=== PATIENT | male | born 1935 | race African-American/Black ===

== ENCOUNTER 2018-03-27 21:16 | Observation (INO) | payer MEDICARE, OTHER ==
--- NOTE | 2018-03-27 21:36 | CT ---
CT BRAIN 03/27/18 HISTORY: Stroke-like symptoms. Noncontrast enhanced CT images of the brain is obtained. Images demonstrate a right parietal area of old stroke. No evidence of intracranial hemorrhages, mass es or lesions seen. IMPRESSION: Areas or right parietal encephalomalacia from old stroke. No acute intracranial abnormality seen. Findings called to Dr. Ryder at 9:24 p.m. on 03/27/18. Code CR POS: BRENNON
[2018-03-27 22:00] LABS: #Lymphocytes 0.7 thou/uL (1.20-3.40); #Monocytes 0.3 thou/uL (0.11-0.59); #Neutrophils 2.3 thou/uL (1.40-6.50); %Basophils 0.5 % (0.0-1.0); %Eosinophils 1.3 % (0.0-10.0); %Lymphocytes 20.5 % (21.0-51.0); %Monocytes 9.7 % (0.0-10.0); %Neutrophils 67.9 % (42.0-75.0); Hemoglobin 12.5 g/dL (14.0-18.0); Mean Corpuscular HGB CONC 33.3 g/dL (32.0-36.0); Mean Corpuscular Hemoglobin 31.3 pg (27.0-31.0); Mean Corpuscular Volume 94.1 fl (80.0-94.0); Mean Platelet Volume 7.5 fL (7.4-10.4); Platelet Count 119 thou/uL (130-400); RBC Distribution Width 12.9 % (11.5-14.5); Red Blood Cell (RBC) Count 3.99 mill/uL (4.70-6.10); White Blood Cell (WBC) Count 3.4 thou/uL (4.8-10.8)
[2018-03-27] MEDS ORDERED: Aspirin 300 MG Suppository ONE (22:02)
[2018-03-27 22:07] LABS: INR-International Normal Ratio 1.1; PTT 31.9 SEC (22.9-36.1); Prothrombin Time 14.7 SEC (12.0-14.7)
[2018-03-27 22:30] LABS: ALT (SGPT) 15 U/L (8-55); AST (SGOT) 28 U/L (5-34); Albumin 4.1 g/dL (3.4-4.8); Alkaline Phosphatase 107 U/L (40-150); Anion Gap 13 mmol/L (10-20); BUN (Urea Nitrogen) 19 mg/dL (8.4-25.7); Bilirubin, Total 0.2 mg/dL (0.2-1.2); Calc. Creatinine Clearance 0 mL/min (70-130); Calcium 9.2 mg/dL (7.8-10.44); Carbon Dioxide 24 mmol/L (23-31); Chloride 107 mmol/L (98-107); Estimated GFR-MDRD 64; Glucose 92 mg/dL (83-110); Potassium 4.4 mmol/L (3.5-5.1); Protein, Total 7.1 g/dL (5.8-8.1); Sodium 140 mmol/L (136-145)
[2018-03-27 22:33] LABS: CKMB 3.6 ng/mL (0-6.6); Troponin I Less than 0.010 ng/mL (< 0.028)
[2018-03-27] MEDS ORDERED: Labetalol HCl 100 MG/20 ML VIAL SLOW IVP PRN (23:27)
[2018-03-27] MEDS ORDERED: hydrALAZINE 20 MG/ML VIAL SLOW IVP PRN (23:27)
[2018-03-27] MEDS ORDERED: Mag-Al 1200 mg/1200 mg/30 ML UDCUP PO PRN (23:27)
[2018-03-27] MEDS ORDERED: Zolpidem Tartrate 5 MG TAB PO PRN (23:27)
[2018-03-27] MEDS ORDERED: Ondansetron ODT 4 MG TAB PO PRN (23:27)
[2018-03-27] MEDS ORDERED: Acetaminophen 325 MG TAB PO PRN (23:27)
[2018-03-27] MEDS ORDERED: Loperamide HCl 2 MG CAP PO PRN (23:27)
[2018-03-27] MEDS ORDERED: Senokot 8.6 MG TAB PO PRN (23:27)
[2018-03-27] MEDS ORDERED: Ondansetron HCl/PF 4 MG/2 ML Vial IVP PRN (23:27)
[2018-03-27] MEDS ORDERED: Milk Of Magnesia 30 ML UDCUP PO PRN (23:27)
[2018-03-27] MEDS ORDERED: HYDROcodone/Acetaminophen 5/325 mg Tablet PO PRN (23:27)
--- NOTE | 2018-03-28 00:46 | HP ---
PRIMARY CARE PHYSICIAN: Dr. Saritha Dao. REASON FOR ADMISSION: Stroke-like symptoms. HISTORY OF PRESENT ILLNESS: An 83-year-old -[place] male who has history of hypertension, hi story of hemorrhagic CVA, dyslipidemia as well as congestive heart failure and seizure disorder, who was fine when he went to [facility] in evening time. He was talking and making jokes there, but his neph ew was with him, he noticed that the patient was doing involuntary movement of his right hand. He wa s having shaking movement of right hand and he was appeared less coherent. He was also found with suraj srivastava when he was seated in chair and watching performance on the stage. The patient was not re sponding properly and that is why his nephew thought that something wrong with him. He called parame dics and subsequently paramedics came to see him there, at that time his blood pressure was 205/120 a nd manual blood pressure was 180/104. The patient was also appeared confused and that is why he was sent to our emergency room. There was stroke alert was initiated from ambulance, but when he came to the ER, he was back to normal. This patient has history of intracranial hemorrhage about 2 months ago and at that time he was admitt ed to [facility]. He was on blood thinner medicine before, but that was taken of f and after resolution of intracranial hemorrhage, the patient was started taking aspirin 81 mg daily . When I saw this patient in the emergency room, at that time, the patient's daughter was present and roberto víctor reported to me that he is back to his baseline in his normal level. REVIEW OF SYSTEMS: The following complete review of systems was negative, unless otherwise mentioned in the HPI or below: Constitutional: Weight loss or gain, ability to conduct usual activities. Sk in: Rash, itching. Eyes: Double vision, pain. ENT/Mouth: Nose bleeding, neck stiffness, pain, te nderness. Cardiovascular: Palpitations, dyspnea on exertion, orthopnea. Respiratory: Shortness of breath, wheezing, cough, hemoptysis, fever or night sweats. Gastrointestinal: Poor appetite, abdom inal pain, heartburn, nausea, vomiting, constipation, or diarrhea. Genitourinary: Urgency, frequenc y, dysuria, nocturia. Musculoskeletal: Pain, swelling. Neurologic/Psychiatric: Anxiety, depressio n. Allergy/Immunologic: Skin rash, bleeding tendency. Please see my HPI for pertinent positive and negative. All other review of system reviewed and negative except as mentioned in the HPI. PAST MEDICAL HISTORY: History of unspecified type of arrhythmia; history of AICD; history of congest barbara heart failure, type of congestive heart failure not known; hypertension; dyslipidemia; gout; oste oarthritis; history of hemorrhagic cerebrovascular accident; history of ischemic cerebrovascular acci dent in 2000, seizure disorder. PAST SURGICAL HISTORY: Left hip surgery, AICD placement. PAST PSYCHIATRIC HISTORY: Reviewed and negative. SOCIAL HISTORY: The patient lives at home with his daughter. No history of tobacco, alcohol or illi cit drug abuse. He ambulates with a cane. FAMILY HISTORY: No strong family history of premature coronary artery disease, stroke or cancer. ALLERGIES: No known drug allergy. CURRENT HOME MEDICATIONS: Minoxidil 5 mg p.o. daily, clonidine 0.1 mg twice daily, carbamazepine 200 mg twice daily, Ecotrin 81 mg p.o. daily, Aldactone 25 mg p.o. daily. The patient's family member did not bring home medication and that is why exactly not verified, but t his is based on the patient's daughter's memory. EMERGENCY ROOM COURSE: The patient is given aspirin 243 mg rectally. PHYSICAL EXAMINATION: VITAL SIGNS: Blood pressure initially 167/80, pulse 60, respiratory rate 15, temperature 97.8, satur ation 91% on room air, weight 89.3 kilograms. GENERAL: The patient is currently alert, awake, in no obvious acute distress. HEAD: Normocephalic, atraumatic. EYES: Pupils are round and reactive to light. Extraocular muscle intact. ENT: Oropharynx within normal limits. Moist mucous membranes. No oral lesion, no pharyngeal erythe ma, no exudate. NECK: Supple, no thyromegaly, no carotid bruit, no jugular venous distention. LUNGS: Clear to auscultation without any rhonchi or rales. CARDIAC: S1, S2 appears regular. No murmur, no gallop, no rub. ABDOMEN: Soft, bowel sounds present, nontender, nondistended. No organomegaly, no mass, no suprapub ic tenderness. BACK: Unremarkable, no CVA tenderness. EXTREMITIES: Upper extremity: Passive movement of all joints are normal. Lower extremities: No ed haylee. Good peripheral pulsation. SKIN: No skin rash. HEMATOLOGICAL SYSTEM: No lymphadenopathy. PSYCHIATRIC: Normal affect. NEUROLOGIC: Only abnormality I found is mild left-sided hemineglect, mild left-sided facial droop, b ut he follows all commands. His cranial nerve grossly intact. Motor and sensation within normal hubbard its and up to his baseline level. No cerebellar sign. Plantar bilateral flexor. SIGNIFICANT LABORATORY DATA: 1. EKG showing pacemaker rhythm, prolonged AV conduction, nonspecific T-wave changes. 2. CT brain based on my review, old stroke of parietal region. No current bleeding. No current act barbara stroke. 3. CBC: WBC 3.4, hemoglobin 12.5, platelet 119. 4. BMP: Sodium 140, potassium 4.4, chloride 107, carbon dioxide 24, anion gap 13, BUN 19, creatinin e 1.30, glucose 92, calcium 9.2. 5. LFT: AST 28, ALT 15, alkaline phosphatase 107, albumin 4.1, CK-MB 3.6, troponin I less than 0.01 0. INR 1.1. ASSESSMENT AND PLAN: IMPRESSION: 1. Stroke-like symptoms. This patient has history of ischemic stroke in 2000 and two months ago he had hemorrhagic stroke. The patient's symptoms completely improved to back to normal. I am suspecti ng this episode is related with a transient ischemic attack/new cerebrovascular accident. At this po int, the patient has a defibrillator/pacemaker and the patient cannot get MRI because of that, but we will obtain echocardiography, carotid Doppler ultrasound. We will consult Neurology for their opini on. We will keep aspirin 81 mg p.o. daily, Lipitor 20 mg p.o. daily. We will start Aldactone 25 mg p.o. daily, clonidine 0.1 mg p.o. b.i.d. and minoxidil 5 mg p.o. daily. We will verify the patient's home medication and start selected home medications. We will check lipid profile, homocysteine leve l tomorrow. Neuro check every 4 hourly. PT, OT, speech evaluation while in hospital. 2. History of congestive heart failure with a history of AICD. This patient is taking Aldactone, La six. He has AICD. Most likely he has underlying congestive heart failure. We will obtain echocardi ography to assess ejection fraction and other structural abnormality. We will continue the patient's home medication. 3. Hypertension. We will continue the patient's home medication including clonidine, minoxidil, [place], Aldactone as per home dosage. We will verify home medication and resumed medication [facility]. 4. Dyslipidemia. Check lipid profile tomorrow and start Lipitor 20 mg p.o. at bedtime. 5. Mild thrombocytopenia. We will repeat CBC tomorrow. 6. Neutropenia and anemia with macrocytosis with mild thrombocytopenia. We will check B12, folate l evel tomorrow and start folic acid and vitamin B12 therapy. 7. History of gout. We will continue allopurinol 100 mg p.o. daily. 8. Deep venous thrombosis prophylaxis, not needed because we are expecting discharge in 24 hours. 9. Gastrointestinal prophylaxis, Pepcid 20 mg p.o. b.i.d. 10. Code status: The patient is FULL CODE. The patient's daughter is surrogate decision maker. Disposition plan within 24 hours. We will keep him as observation status and do neuro check while in hospital.
[2018-03-28 01:08] VITALS: BMI 25.0
[2018-03-28 05:07] LABS: #Lymphocytes 0.8 thou/uL (1.20-3.40); #Monocytes 0.3 thou/uL (0.11-0.59); #Neutrophils 2.5 thou/uL (1.40-6.50); %Basophils 0.4 % (0.0-1.0); %Eosinophils 0.3 % (0.0-10.0); %Lymphocytes 22.5 % (21.0-51.0); %Monocytes 9.2 % (0.0-10.0); %Neutrophils 67.6 % (42.0-75.0); Mean Corpuscular HGB CONC 32.6 g/dL (32.0-36.0); Mean Corpuscular Hemoglobin 30.6 pg (27.0-31.0); Mean Corpuscular Volume 93.7 fl (80.0-94.0); Mean Platelet Volume 7.8 fL (7.4-10.4); Platelet Count 128 thou/uL (130-400); RBC Distribution Width 12.8 % (11.5-14.5); Red Blood Cell (RBC) Count 3.93 mill/uL (4.70-6.10); White Blood Cell (WBC) Count 3.7 thou/uL (4.8-10.8)
[2018-03-28 05:22] LABS: Anion Gap 9 mmol/L (10-20); BUN (Urea Nitrogen) 18 mg/dL (8.4-25.7); Calc. Creatinine Clearance 64 mL/min (70-130); Calcium 9.1 mg/dL (7.8-10.44); Carbon Dioxide 25 mmol/L (23-31); Cardiac Risk 2.6 (Less than 4.5); Chloride 107 mmol/L (98-107); Cholesterol 167 mg/dl (< 200 Desired); Estimated GFR-MDRD 76; Glucose 98 mg/dL (83-110); HDL Cholesterol 65 mg/dL (>60 Neg Risk); LDL Cholesterol, Calculated 93 mg/dL; Potassium 3.9 mmol/L (3.5-5.1); Sodium 137 mmol/L (136-145); Triglycerides 44 mg/dL (Less than 150)
[2018-03-28 05:51] LABS: Folate (Folic Acid) 7.3 ng/mL (7.0-31.4)
[2018-03-28] MEDS ORDERED: Spironolactone 25 MG TAB PO SCH (08:00)
[2018-03-28] MEDS ORDERED: Famotidine 20 MG TAB PO SCH (09:00)
[2018-03-28] MEDS ORDERED: Minoxidil 2.5 MG TAB PO SCH (09:00)
[2018-03-28] MEDS ORDERED: Aspirin 81 mg Enteric Coated Tablet PO SCH (09:00)
[2018-03-28] MEDS ORDERED: cloNIDine 0.1 MG TAB PO SCH (09:00)
[2018-03-28] MEDS ORDERED: Carvedilol 3.125 MG TAB PO SCH (09:00)
--- NOTE | 2018-03-28 10:31 | ULT ---
BILATERAL CAROTID DUPLEX ULTRASOUND: Date: 03/28/18 HISTORY: Stroke. CVA. FINDINGS: Real-time color Doppler evaluation of the right and left carotid systems shows some plaque formation at the origin of both internal carotid arteries. On the right side, peak systolic velocities of the common carotid were 123 cm/second. Internal caroti d velocities were 990 cm/second and external carotid velocities were 200 cm/second. On the left side, peak systolic velocities of the common carotid were 111 cm/second. Internal carotid velocities were 73 cm/second and external carotid velocities were 113 cm/second. Vertebral flow was antegrade bilaterally. IMPRESSION: 1. No evidence of hemodynamically significant stenosis of either internal carotid artery. 2. Incidental note is made of moderate stenosis of the right external carotid artery. POS: BRENNON
--- NOTE | 2018-03-28 14:07 | ADD-HP ---
ADDENDUM: 1. Hypertensive urgency, which was there at anglican level, but currently improved and will monitor cl osely and will resume selected medication for blood pressure. 2. Seizure disorder. We will continue Tegretol as per home dosage. 3. We will interrogate his pacemaker/defibrillator to rule out any arrhythmia.
[2018-03-28 15:41] VITALS: BP 130/61; TEMP 97.8
--- NOTE | 2018-03-28 17:19 | CON ---
DATE OF CONSULTATION: 03/28/2018 CHIEF COMPLAINT: Possible acute stroke. HISTORY OF PRESENT ILLNESS: The patient was unable to give me any medical history. He states he herrmann s not remember what happened to him yesterday and why he came in. Per chart, he has history of high blood pressure, hemorrhagic CVA, congestive heart failure, dyslipidemia, and seizure disorder, and he was having involuntary movement of his right hand and some confusion along with facial droop by a fa hari member and was not responding right and he was brought to the hospital. His blood pressure was 205/120, and after coming back to the ER, he is return back to his baseline. The patient does not re member any of this event and his brother, who was in the room, could not provide any additional infor mation. They do not say, the patient reports he does not have any clear memory problems. PAST MEDICAL HISTORY: Cardiac dysrhythmia, AICD, history of congestive heart failure, hypertension, hypercholesterolemia, gout, osteoarthritis, hemorrhagic CVA in 2000, seizure disorder. PAST SURGICAL HISTORY: Left hip surgery, AICD placement. SOCIAL HISTORY: He lives with his daughter. Does not drink or smoke. FAMILY HISTORY: Positive for hypertension and not for cancer. No history of stroke. ALLERGIES: No drug allergies. MEDICATIONS: Reviewed. He is on carbamazepine 200 mg b.i.d. for seizures and he is on aspirin for s troke prophylaxis. REVIEW OF SYSTEMS: PULMONARY: Normal. CARDIAC: Normal. GASTROINTESTINAL: Normal. GENITOURINARY: Normal. NEUROLOGICAL: Positive for episode of confusion and involuntary movements associated with hypertensi on. HEMATOLOGY: Normal. PULMONARY: Normal. DERMATOLOGY: Normal. CURRENT LABORATORY RESULTS: White count 3.7, hemoglobin 12, hematocrit 36.8, platelets 128. PT 14.7 , INR 1.1, PTT 31.9, sodium 137, potassium 3.9, chloride 107, bicarbonate 25, anion gap 9, BUN 18, cr eatinine 1.12, GFR 76, glucose 98, AST 28, ALT 15, alkaline phosphatase 107. Cholesterol and triglyc erides were within normal limits. B12 is 482. Folate 7.30. Homocysteine 14.61. CT scan of the hea d performed yesterday showed areas of right parietal encephalomalacia from prior stroke. No acute in tracranial abnormalities and carotid Doppler is negative for any significant stenosis. He has modera te stenosis of right external carotid artery. PHYSICAL EXAMINATION: VITAL SIGNS: Blood pressure 125/68, pulse 61, temperature 97.9, respiratory rate 16, and O2 sats 95. GENERAL APPEARANCE: Well-built, well-nourished gentleman, who is comfortable. CHEST: Clear vesicular breathing. CARDIOVASCULAR: S1, S2 heard, no murmurs. Carotids are clear. ABDOMEN: Soft, nontender, no organomegaly noted. NEUROLOGIC: Higher intellectual functions. He is oriented to person and place, knows the month is M ay, but missed the date and the year and brother states that was because I certainly asked him for in formation. Cranial nerves II-XII normal extraocular movements. Normal pupillary reaction. Normal f undus exam. No facial asymmetry, normal sensation of face bilaterally. Tongue midline, no atrophy n oted. Normal hearing bilaterally. MOTOR: Bulk normal, tone normal, strength 5/5 in upper and lower extremities bilaterally. Muscle gr oups tested were iliopsoas, hamstrings, quadriceps, ankle dorsiflexion and plantarflexion bilaterally . Deltoid, biceps, triceps, wrist extension and flexion bilaterally. SENSORY: Normal touch, temperature, proprioception and vibration bilaterally. CEREBELLAR: Normal [id number]. Gait not tested. IMPRESSION: Patient is an 83-year-old man with prior history of strokes, congestive heart failure an d AICD also has hypertension. He presented with unusual episode of having had some confusion and inv oluntary movements in the right upper extremity, which was all transient and subsided. His blood pre ssures were at fairly high initially and subsequently they trended down and they are now back to base line, at this time, most likely explanation is possible TIA versus hypertensive crises and he takes a spirin on a daily basis and his neurological examination is essentially normal except for some mild c ognitive problems, which I suspect have been present for a while. RECOMMENDATIONS: Increase aspirin to full dose 325 mg per day. I do not think any additional invest igations are needed at this time, he has pending echo, carotid Doppler was negative and we are unable to do MRI due to has been having a pacemaker. Please call Neurology if you have any further questio ns.
--- NOTE | 2018-03-28 18:55 | DIS ---
DATE OF ADMISSION: 03/27/2018 DATE OF DISCHARGE: 03/28/2018 PRIMARY CARE PHYSICIAN: Dr. Dao. DISCHARGE DIAGNOSES: 1. Transient ischemic attack. 2. Hypertensive encephalopathy. 3. History of cerebrovascular disease and prior stroke. 4. Seizure disorder. 5. Status post AICD/pacemaker placement in the past. 6. History of arrhythmia of unknown type. 7. History of chronic diastolic congestive heart failure. 8. Essential hypertension. 9. Hyperlipidemia. 10. Gout. 11. Osteoarthritis. 12. History of hemorrhagic cerebrovascular accident. CONSULTATION: Neurology, Dr. Lovell. PROCEDURES: 1. Echocardiogram on 03/28/2018 that showed an EF of 50-55%. Pacer lead in the RV, normal LA, moder ately enlarged RA, mild TR. 2. Carotid ultrasound that showed no hemodynamically significant stenoses of the internal carotid ar stefani and moderate stenosis of the right external carotid. HOSPITAL COURSE: Mr. Wilson is an 83-year-old gentleman with above history who was in the emergency department on 03/27/2018 via EMS after family found him not acting like his normal self. He was lisa jacky making jokes and his nephews with him, but was doing some involuntary movements of his right ferraro d and shaking movement in the right hand and appeared less coherent. He was seated in a chair and palmer d a little bit of a facial droop, so EMS was called. He was seen and evaluated. There, his blood pr essure 205/120, minimal blood pressure 180/104. He was transported to the emergency department for e valuation. Initial workup unremarkable. Given medicines to normal his blood pressure. We were called for admis ac. HOSPITAL COURSE: Patient is seen and examined by Dr. Mejia. He was continued on regular home medi cations, Neurology consultation was entered. Echo and carotid ultrasound were requested. Overnight, his symptoms completely resolved. Today, he is back to his baseline. Echo and carotid were unremar kable as above. He was seen by Neurology who recommended increased to full aspirin a day and otherwi se no further workup. He was subsequently stable for discharge with outpatient followup. PHYSICAL EXAMINATION: The patient was seen and examined on the day of discharge. Discharge plan and disposition discussed with the patient and his family face to face at the bedside. DISCHARGE MEDICATIONS: 1. Aspirin 325 mg daily, they just refilled his baby aspirin so at home they could take four baby as pirins a day until they were out. 2. Lipitor 20 mg p.o. at bedtime. 3. Zocor 20 mg p.o. at bedtime. 4. Minoxidil 2.5 mg p.o. daily. New prescription sent. 5. Spironolactone 25 mg p.o. q.a.m. New prescription sent. 6. Coreg 3.125 mg p.o. b.i.d. New prescription sent. FOLLOWUP APPOINTMENTS: 1. Dr. Dao within a week. 2. His neurologist next available. DISCHARGE ACTIVITY: Per cardiopulmonary limits. DISCHARGE DIET: Heart healthy recommended. DISCHARGE CONDITION: Stable. DISPOSITION: He can be discharged home via private vehicle.
[2018-03-28] MEDS ORDERED: Atorvastatin Calcium 20 MG TAB PO SCH (21:00)
== END 2018-03-28 17:10 | disposition home or self-care (01) ==
LOC: ERS 21:16 → 2SE 22:44
PROVIDERS: ADMIT Internal Medicine; ATTEND Internal Medicine
DX: G45.9 Transient cerebral ischemic attack, unspecified (principal); I11.0 Hypertensive heart disease with heart failure; I50.32 Chronic diastolic (congestive) heart failure; E78.5 Hyperlipidemia, unspecified; M10.9 Gout, unspecified; D69.6 Thrombocytopenia, unspecified; D70.9 Neutropenia, unspecified; D53.9 Nutritional anemia, unspecified; I16.0 Hypertensive urgency; G40.909 Epilepsy, unspecified, not intractable, without status epilepticus; M19.90 Unspecified osteoarthritis, unspecified site; I67.4 Hypertensive encephalopathy; Z86.73 Personal history of transient ischemic attack (TIA), and cerebral infarction without residual deficits; Z79.82 Long term (current) use of aspirin; Z79.899 Other long term (current) drug therapy; Z95.810 Presence of automatic (implantable) cardiac defibrillator
CPT/HCPCS: 70450; 80048; 80053; 80061; 82553; 82607; 82746; 82962 ×2; 83090; 84484; 85025 ×2; 85610; 85730; 93005; 93306; 93880; 94760; 97139 ×2; 97530; 99285; G0378; G8978; G8979; G8980; 36415; 36416; G8996-GN-CH; G8997-GN-CH

== ENCOUNTER 2021-10-18 07:43 | Outpatient (CLI) | payer MEDICARE | END 2021-10-18 07:44 | disposition home or self-care (01) | LOC: SCSMRI 07:43 → SCSRAD 07:44 | PROVIDERS: ATTEND Neurological Surgery | DX: M47.26 Other spondylosis with radiculopathy, lumbar region (principal) | CPT/HCPCS: 72110 ==

== ENCOUNTER 2021-10-24 16:49 | Inpatient (IN) | payer OTHER, MEDICARE ==
[2021-10-24] MEDS ORDERED: Ondansetron PF 4 MG/2 ML Vial IVP PRN (21:45)
[2021-10-24] MEDS ORDERED: Labetalol HCl 100 MG/20 ML VIAL SLOW IVP PRN (21:47)
[2021-10-24] MEDS: niCARdipine 25 MG in Sodium Chloride 0.9% 250 ML 240 ML IVPB SCH (23:00)
[2021-10-24] MEDS ORDERED: niCARdipine 25 MG in Sodium Chloride 0.9% 250 ML 250 ML IVPB SCH (23:15)
[2021-10-25] MEDS: niCARdipine 25 MG in Sodium Chloride 0.9% 250 ML 240 ML IVPB SCH ×4 (02:57→13:33)
[2021-10-25 03:39] LABS: #Lymphocytes 0.5 thou/uL (1.20-3.40); #Monocytes 0.6 thou/uL (0.11-0.59); #Neutrophils 3.2 thou/uL (1.40-6.50); %Basophils 0.2 % (0.0-1.0); %Eosinophils 0.7 % (0.0-10.0); %Lymphocytes 11.1 % (21.0-51.0); %Monocytes 13.6 % (0.0-10.0); %Neutrophils 74.4 % (42.0-75.0); Hemoglobin 11.3 g/dL (14.0-18.0); Mean Corpuscular HGB CONC 33.4 g/dL (32.0-36.0); Mean Corpuscular Hemoglobin 31.2 pg (27.0-31.0); Mean Corpuscular Volume 93.5 fL (78.0-98.0); Mean Platelet Volume 8.4 fL (7.4-10.4); Platelet Count 121 thou/uL (130-400); Red Blood Cell (RBC) Count 3.63 mill/uL (4.70-6.10); White Blood Cell (WBC) Count 4.3 thou/uL (4.8-10.8)
[2021-10-25 03:42] LABS: Anion Gap 14 mmol/L (10-20); BUN (Urea Nitrogen) 14 mg/dL (8.4-25.7); Calc. Creatinine Clearance 0 mL/min (70-130); Calcium 9.9 mg/dL (7.8-10.44); Carbon Dioxide 27 mmol/L (23-31); Chloride 103 mmol/L (98-107); Glucose 109 mg/dL (83-110); Potassium 3.5 mmol/L (3.5-5.1); Sodium 140 mmol/L (136-145)
[2021-10-25 06:10] VITALS: BMI 20.9
[2021-10-25] MEDS ORDERED: Famotidine 20 MG TAB PO SCH (09:00)
[2021-10-25] MEDS: Famotidine/PF 20 mg/2ml Vial SLOW IVP SCH ×2 (09:15→21:24)
[2021-10-25] MEDS ORDERED: Amlodipine 5 MG TAB PO SCH (12:30)
[2021-10-25] MEDS: Acetaminophen 325 MG TAB PO PRN (14:17)
[2021-10-25] MEDS: cloNIDine 0.1 MG TAB PO SCH (21:22)
[2021-10-25] MEDS: Rosuvastatin 10 MG TAB PO SCH (21:22)
[2021-10-25] MEDS: lamoTRIgine 100 MG TAB PO SCH (21:22)
[2021-10-25] MEDS: Cefuroxime Axetil 250 MG TAB PO SCH (21:24)
[2021-10-26] MEDS: hydrALAZINE 20 MG/ML VIAL SLOW IVP PRN ×6 (00:13→19:35)
[2021-10-26] MEDS: Acetaminophen 325 MG TAB PO PRN ×4 (03:24→20:20)
[2021-10-26 04:17] LABS: INR-International Normal Ratio 1.2
[2021-10-26 04:24] LABS: Hemoglobin 10.7 g/dL (14.0-18.0); Mean Corpuscular HGB CONC 32.9 g/dL (32.0-36.0); Mean Corpuscular Hemoglobin 30.9 pg (27.0-31.0); Mean Corpuscular Volume 93.7 fL (78.0-98.0); Mean Platelet Volume 8.3 fL (7.4-10.4); Platelet Count 123 thou/uL (130-400); RBC Distribution Width 14.1 % (11.5-14.5); Red Blood Cell (RBC) Count 3.47 mill/uL (4.70-6.10); White Blood Cell (WBC) Count 3.4 thou/uL (4.8-10.8)
[2021-10-26 04:29] LABS: Anion Gap 15 mmol/L (10-20); BUN (Urea Nitrogen) 15 mg/dL (8.4-25.7); Calc. Creatinine Clearance 48 mL/min (70-130); Calcium 9.1 mg/dL (7.8-10.44); Carbon Dioxide 21 mmol/L (23-31); Chloride 107 mmol/L (98-107); Glucose 97 mg/dL (83-110); Magnesium 2.1 mg/dL (1.6-2.6); Potassium 3.3 mmol/L (3.5-5.1); Sodium 140 mmol/L (136-145)
[2021-10-26 05:02] LABS: Band 3 % (5-11); Lymphocytes 26 % (21-51); MDiff Complete? YES; Monocytes 10 % (0-10); Neutrophil 61 % (42-75)
[2021-10-26 06:31] LABS: Phosphorus 2.4 mg/dL (2.3-4.7)
[2021-10-26] MEDS: Famotidine/PF 20 mg/2ml Vial SLOW IVP SCH ×2 (08:45→20:23)
[2021-10-26] MEDS: Lisinopril 20 MG TAB PO SCH (08:45)
[2021-10-26] MEDS: Allopurinol 300 MG TAB PO SCH (08:46)
[2021-10-26] MEDS: Furosemide 20 MG TAB PO SCH ×2 (08:46→14:56)
[2021-10-26] MEDS: cloNIDine 0.1 MG TAB PO SCH ×2 (08:46→20:22)
[2021-10-26] MEDS: lamoTRIgine 100 MG TAB PO SCH ×2 (08:46→20:23)
[2021-10-26] MEDS: Cefuroxime Axetil 250 MG TAB PO SCH ×2 (09:56→20:23)
[2021-10-26] MEDS ORDERED: Electrolyte Replacement Protocol 1 EACH FS SCH (18:15)
[2021-10-26] MEDS ORDERED: Potassium Chloride 20 MEQ TAB PO SCH (18:15)
[2021-10-26] MEDS: Rosuvastatin 10 MG TAB PO SCH (20:20)
[2021-10-27 06:09] LABS: Anion Gap 16 mmol/L (10-20); BUN (Urea Nitrogen) 18 mg/dL (8.4-25.7); Calc. Creatinine Clearance 39 mL/min (70-130); Calcium 9.1 mg/dL (7.8-10.44); Carbon Dioxide 20 mmol/L (23-31); Chloride 108 mmol/L (98-107); Glucose 81 mg/dL (83-110); Magnesium 2.2 mg/dL (1.6-2.6); Potassium 4.4 mmol/L (3.5-5.1); Sodium 140 mmol/L (136-145)
[2021-10-27] MEDS: Lisinopril 20 MG TAB PO SCH (08:13)
[2021-10-27] MEDS: cloNIDine 0.1 MG TAB PO SCH ×3 (08:17→20:21)
[2021-10-27] MEDS: Furosemide 20 MG TAB PO SCH ×2 (08:18→14:07)
[2021-10-27] MEDS: Cefuroxime Axetil 250 MG TAB PO SCH ×2 (08:19→20:21)
[2021-10-27] MEDS: lamoTRIgine 100 MG TAB PO SCH ×2 (08:20→20:22)
[2021-10-27] MEDS: Allopurinol 300 MG TAB PO SCH (08:20)
[2021-10-27] MEDS: Famotidine/PF 20 mg/2ml Vial SLOW IVP SCH ×2 (08:25→20:29)
[2021-10-27] MEDS: Acetaminophen 325 MG TAB PO PRN ×2 (09:54→20:20)
[2021-10-27 10:14] LABS: Band 10 % (5-11); Hemoglobin 10.8 g/dL (14.0-18.0); Lymphocytes 14 % (21-51); MDiff Complete? YES; Mean Corpuscular HGB CONC 32.6 g/dL (32.0-36.0); Mean Corpuscular Hemoglobin 31.2 pg (27.0-31.0); Mean Corpuscular Volume 95.7 fL (78.0-98.0); Mean Platelet Volume 8.3 fL (7.4-10.4); Monocytes 14 % (0-10); Neutrophil 59 % (42-75); Ovalocytes SLIGHT = 2-5 cells (100X) (0-1/hpf); Platelet Count 122 thou/uL (130-400); Platelet Morphology Comment Appears Decreased; RBC Distribution Width 14.6 % (11.5-14.5); Reactive Lymphocytes 3 % (0-10); Red Blood Cell (RBC) Count 3.47 mill/uL (4.70-6.10); Schistocytes SLIGHT = 2-5 cells (100X) (0-1/hpf); White Blood Cell (WBC) Count 3.9 thou/uL (4.8-10.8)
[2021-10-27] MEDS: hydrALAZINE 20 MG/ML VIAL SLOW IVP PRN ×2 (11:45→15:29)
[2021-10-27] MEDS ORDERED: HYDROcodone/Acetaminophen 5/325 mg Tablet PO PRN (12:27)
[2021-10-27] MEDS: Rosuvastatin 10 MG TAB PO SCH (20:21)
[2021-10-28] MEDS ORDERED: Lisinopril 20 MG TAB PO SCH (09:00)
[2021-10-28] MEDS: Allopurinol 300 MG TAB PO SCH (09:16)
[2021-10-28] MEDS: cloNIDine 0.1 MG TAB PO SCH (09:16)
[2021-10-28] MEDS: Cefuroxime Axetil 250 MG TAB PO SCH (09:16)
[2021-10-28] MEDS: Furosemide 20 MG TAB PO SCH ×2 (09:16→13:09)
[2021-10-28] MEDS: lamoTRIgine 100 MG TAB PO SCH (09:16)
[2021-10-28] MEDS: hydrALAZINE 20 MG/ML VIAL SLOW IVP PRN ×2 (09:17→11:57)
[2021-10-28] MEDS: Famotidine/PF 20 mg/2ml Vial SLOW IVP SCH (09:17)
[2021-10-28 09:27] LABS: Hemoglobin 10.8 g/dL (14.0-18.0); Mean Corpuscular HGB CONC 32.5 g/dL (32.0-36.0); Mean Corpuscular Hemoglobin 30.8 pg (27.0-31.0); Mean Corpuscular Volume 94.7 fL (78.0-98.0); Mean Platelet Volume 8.6 fL (7.4-10.4); Platelet Count 117 thou/uL (130-400); RBC Distribution Width 14.4 % (11.5-14.5); Red Blood Cell (RBC) Count 3.52 mill/uL (4.70-6.10); White Blood Cell (WBC) Count 3.5 thou/uL (4.8-10.8)
[2021-10-28 09:29] LABS: Anion Gap 16 mmol/L (10-20); BUN (Urea Nitrogen) 19 mg/dL (8.4-25.7); Calc. Creatinine Clearance 39 mL/min (70-130); Calcium 9.5 mg/dL (7.8-10.44); Carbon Dioxide 24 mmol/L (23-31); Chloride 106 mmol/L (98-107); Glucose 83 mg/dL (83-110); Magnesium 2.2 mg/dL (1.6-2.6); Phosphorus 3.2 mg/dL (2.3-4.7); Potassium 3.6 mmol/L (3.5-5.1); Sodium 142 mmol/L (136-145)
[2021-10-28 10:16] LABS: Band 5 % (5-11); Lymphocytes 27 % (21-51); MDiff Complete? YES; Monocytes 12 % (0-10); Neutrophil 56 % (42-75); Platelet Morphology Comment Appears Decreased; Polychromasia SLIGHT = 2-3 cells (100X) (0-2/hpf)
[2021-10-28] MEDS ORDERED: Tamsulosin HCl 0.4 MG CAP PO SCH (10:45)
[2021-10-28] MEDS ORDERED: Chlorthalidone 25 MG TAB PO SCH (12:00)
[2021-10-28 12:07] VITALS: TEMP 98.9
[2021-10-28 12:12] VITALS: BP 148/86
[2021-10-29] MEDS ORDERED: Tamsulosin HCl 0.4 MG CAP PO SCH (09:00)
[2021-10-29] MEDS ORDERED: Chlorthalidone 25 MG TAB PO SCH (09:00)
[2021-10-29] MEDS ORDERED: Famotidine/PF 20 mg/2ml Vial SLOW IVP SCH (09:00)
== END 2021-10-28 14:30 | disposition home health service (06) | DRG 64 ==
LOC: CCU 21:05 → NEURO 10-26 18:50
PROVIDERS: ADMIT Family Medicine; ATTEND Family Medicine
DX: I60.9 Nontraumatic subarachnoid hemorrhage, unspecified (principal); J18.9 Pneumonia, unspecified organism; S32.10XA Unspecified fracture of sacrum, initial encounter for closed fracture; I50.32 Chronic diastolic (congestive) heart failure; I13.0 Hypertensive heart and chronic kidney disease with heart failure and stage 1 through stage 4 chronic kidney disease, or unspecified chronic kidney disease; C34.90 Malignant neoplasm of unspecified part of unspecified bronchus or lung; F03.90 Unspecified dementia, unspecified severity, without behavioral disturbance, psychotic disturbance, mood disturbance, and anxiety; E78.5 Hyperlipidemia, unspecified; D63.1 Anemia in chronic kidney disease; M19.90 Unspecified osteoarthritis, unspecified site; G40.909 Epilepsy, unspecified, not intractable, without status epilepticus; M10.9 Gout, unspecified; N18.30 Chronic kidney disease, stage 3 unspecified; I62.00 Nontraumatic subdural hemorrhage, unspecified; D69.6 Thrombocytopenia, unspecified; G89.29 Other chronic pain; M54.50 Low back pain, unspecified; E78.00 Pure hypercholesterolemia, unspecified; N40.1 Benign prostatic hyperplasia with lower urinary tract symptoms; R33.8 Other retention of urine; Z96.642 Presence of left artificial hip joint; I61.8 Other nontraumatic intracerebral hemorrhage; V49.9XXA Car occupant (driver) (passenger) injured in unspecified traffic accident, initial encounter; Z86.73 Personal history of transient ischemic attack (TIA), and cerebral infarction without residual deficits; Z95.810 Presence of automatic (implantable) cardiac defibrillator; Z88.8 Allergy status to other drugs, medicaments and biological substances; Z79.899 Other long term (current) drug therapy; Z87.891 Personal history of nicotine dependence; Z82.3 Family history of stroke; Z82.49 Family history of ischemic heart disease and other diseases of the circulatory system
CPT/HCPCS: 36415; 70450; 80048; 83735; 84100; 85025; 85610; 85730; 86850; 86900; 86901; J0360; J7050; S0028

== ENCOUNTER 2021-11-03 23:42 | Observation (INO) | payer MEDICARE ==
[2021-11-04 01:01] LABS: #Lymphocytes 0.7 thou/uL (1.20-3.40); #Monocytes 0.7 thou/uL (0.11-0.59); #Neutrophils 3.9 thou/uL (1.40-6.50); %Basophils 0.2 % (0.0-1.0); %Eosinophils 0.3 % (0.0-10.0); %Lymphocytes 12.9 % (21.0-51.0); %Monocytes 12.8 % (0.0-10.0); %Neutrophils 73.9 % (42.0-75.0); Hemoglobin 11.4 g/dL (14.0-18.0); Mean Corpuscular HGB CONC 33.1 g/dL (32.0-36.0); Mean Corpuscular Hemoglobin 31.9 pg (27.0-31.0); Mean Corpuscular Volume 96.4 fL (78.0-98.0); Mean Platelet Volume 7.6 fL (7.4-10.4); Platelet Count 164 thou/uL (130-400); RBC Distribution Width 14.3 % (11.5-14.5); Red Blood Cell (RBC) Count 3.57 mill/uL (4.70-6.10); White Blood Cell (WBC) Count 5.2 thou/uL (4.8-10.8)
[2021-11-04 01:25] LABS: ALT (SGPT) 16 U/L (8-55); AST (SGOT) 27 U/L (5-34); Albumin 4.1 g/dL (3.4-4.8); Alkaline Phosphatase 153 U/L (40-110); Anion Gap 15 mmol/L (10-20); BUN (Urea Nitrogen) 25 mg/dL (8.4-25.7); Bilirubin, Total 0.4 mg/dL (0.2-1.2); Calc. Creatinine Clearance 0 mL/min (70-130); Calcium 11.1 mg/dL (7.8-10.44); Carbon Dioxide 24 mmol/L (23-31); Chloride 101 mmol/L (98-107); Globulin 3.9 g/dL (2.4-3.5); Glucose 110 mg/dL (83-110); Potassium 3.3 mmol/L (3.5-5.1); Sodium 137 mmol/L (136-145)
[2021-11-04 02:03] LABS: Bacteria/HPF None Seen HPF (None Seen); Bilirubin Negative (Negative); Blood, Urine Trace (Negative); Clarity Clear (Clear); Glucose, Urine (Dipstick) Normal (Negative); Ketone, Urine Negative (Negative); Leukocyte Negative Leu/uL (Negative); Nitrite Negative (Negative); Protein, Urine (Dipstick) 20 mg/dL (Neg-Trace); RBC/HPF 0-3 HPF (0-3); Specific Gravity, Urine 1.014 (1.002-1.036); Squamous Epithelial None Seen HPF (0-3); Urobilinogen Normal mg/dL (Less than 2); pH, Urine 5.5 (5.0-9.0)
[2021-11-04 05:41] LABS: SARS-CoV-2 NAA Rapid Test Not Detected (NotDetected)
[2021-11-04] MEDS ORDERED: hydrALAZINE 20 MG/ML VIAL SLOW IVP PRN ×2 (06:13→08:32)
[2021-11-04] MEDS ORDERED: Potassium Chloride 20 MEQ TAB PO SCH (06:15)
[2021-11-04] MEDS ORDERED: Potassium Chloride 20 MEQ TAB ONE (06:27)
[2021-11-04] MEDS ORDERED: hydrALAZINE 25 MG TAB ONE (06:27)
[2021-11-04] MEDS ORDERED: hydrALAZINE 20 MG/ML VIAL ONE (06:28)
[2021-11-04] MEDS ORDERED: Ondansetron PF 4 MG/2 ML Vial IVP PRN (08:16)
[2021-11-04] MEDS ORDERED: Albuterol Sulfate 2.5 mg/3 ml Neb NEB PRN (08:17)
[2021-11-04] MEDS ORDERED: Glycopyrrolate 1 MG TAB PO PRN (08:17)
[2021-11-04] MEDS ORDERED: cloNIDine 0.1mg/24 Hour PATCH TD SCH (09:00)
[2021-11-04] MEDS: Sodium Chloride 0.9% 1,000 ML IV SCH (10:46)
[2021-11-04] MEDS ORDERED: Acetaminophen 500 MG TAB PO PRN (10:56)
[2021-11-04] MEDS ORDERED: Acetaminophen 500 MG TAB ONE (11:01)
[2021-11-04] MEDS: Heparin 5,000 UNITS/ML VIAL SC SCH ×2 (11:45→16:16)
[2021-11-04] MEDS: lamoTRIgine 100 MG TAB PO SCH ×2 (11:46→21:35)
[2021-11-04] MEDS: Tamsulosin HCl 0.4 MG CAP PO SCH (11:46)
[2021-11-04 15:52] VITALS: BMI 20.2
[2021-11-04] MEDS ORDERED: Rosuvastatin 20 MG TAB PO SCH (21:00)
[2021-11-05] MEDS: Sodium Chloride 0.9% 1,000 ML IV SCH (02:30)
[2021-11-05 05:23] LABS: #Lymphocytes 0.7 thou/uL (1.20-3.40); #Monocytes 0.4 thou/uL (0.11-0.59); #Neutrophils 2.2 thou/uL (1.40-6.50); %Basophils 0.1 % (0.0-1.0); %Eosinophils 0.5 % (0.0-10.0); %Lymphocytes 20.4 % (21.0-51.0); %Monocytes 13.3 % (0.0-10.0); %Neutrophils 65.7 % (42.0-75.0); Hemoglobin 10.1 g/dL (14.0-18.0); Mean Corpuscular HGB CONC 33.3 g/dL (32.0-36.0); Mean Corpuscular Hemoglobin 31.6 pg (27.0-31.0); Mean Corpuscular Volume 94.7 fL (78.0-98.0); Mean Platelet Volume 7.8 fL (7.4-10.4); Platelet Count 158 thou/uL (130-400); RBC Distribution Width 14.3 % (11.5-14.5); Red Blood Cell (RBC) Count 3.19 mill/uL (4.70-6.10); White Blood Cell (WBC) Count 3.3 thou/uL (4.8-10.8)
[2021-11-05 05:45] LABS: Anion Gap 13 mmol/L (10-20); BUN (Urea Nitrogen) 19 mg/dL (8.4-25.7); Calc. Creatinine Clearance 35 mL/min (70-130); Calcium 10.1 mg/dL (7.8-10.44); Carbon Dioxide 23 mmol/L (23-31); Chloride 105 mmol/L (98-107); Glucose 75 mg/dL (83-110); Potassium 3.2 mmol/L (3.5-5.1); Sodium 138 mmol/L (136-145)
[2021-11-05] MEDS: lamoTRIgine 100 MG TAB PO SCH (08:25)
[2021-11-05] MEDS: Tamsulosin HCl 0.4 MG CAP PO SCH (08:30)
[2021-11-05 13:10] VITALS: BP 130/80; TEMP 98.2
== END 2021-11-05 05:40 | disposition home or self-care (01) ==
LOC: ERS 23:42 → ERHOLD 11-04 03:54 → 2NO 11-04 14:55
PROVIDERS: ADMIT Internal Medicine; ATTEND Internal Medicine
DX: I13.0 Hypertensive heart and chronic kidney disease with heart failure and stage 1 through stage 4 chronic kidney disease, or unspecified chronic kidney disease (principal); N18.30 Chronic kidney disease, stage 3 unspecified; I50.32 Chronic diastolic (congestive) heart failure; N17.9 Acute kidney failure, unspecified; D63.1 Anemia in chronic kidney disease; E86.0 Dehydration; E78.5 Hyperlipidemia, unspecified; G40.909 Epilepsy, unspecified, not intractable, without status epilepticus; F03.90 Unspecified dementia, unspecified severity, without behavioral disturbance, psychotic disturbance, mood disturbance, and anxiety; G93.40 Encephalopathy, unspecified; M19.90 Unspecified osteoarthritis, unspecified site; M10.9 Gout, unspecified; E87.6 Hypokalemia; I49.9 Cardiac arrhythmia, unspecified; R33.8 Other retention of urine; R64 Cachexia; Z68.20 Body mass index [BMI] 20.0-20.9, adult; Z86.73 Personal history of transient ischemic attack (TIA), and cerebral infarction without residual deficits; Z87.891 Personal history of nicotine dependence; Z79.899 Other long term (current) drug therapy; Z88.8 Allergy status to other drugs, medicaments and biological substances; Z95.810 Presence of automatic (implantable) cardiac defibrillator; Z20.822 Contact with and (suspected) exposure to COVID-19
CPT/HCPCS: 70450; 71045; 80048; 80053; 85025 ×2; 93005; 97116 ×2; 97139 ×3; U0002; 36415; 81003; 81015; 96372; 96374; G0378; J0360; J1644; J7050

== ENCOUNTER 2021-11-25 14:09 | Emergency (ER) | payer MEDICARE | END 2021-11-25 14:20 | disposition left against medical advice (07) | LOC: ERS 14:09 | DX: Z53.21 Procedure and treatment not carried out due to patient leaving prior to being seen by health care provider (principal) ==

== ENCOUNTER 2021-12-30 19:53 | Emergency (ER) | payer MEDICARE | END 2021-12-30 21:13 | disposition home or self-care (01) | LOC: ERS 19:53 | DX: K20.80 Other esophagitis without bleeding (principal); I10 Essential (primary) hypertension; Z79.899 Other long term (current) drug therapy | CPT/HCPCS: 99283 ==